=== PATIENT | female | born 1995 | race Caucasian/White ===

== ENCOUNTER 2022-06-16 13:47 | Emergency (ER) | payer BC, OTHER | END 2022-06-16 15:26 | disposition home or self-care (01) | LOC: CSHERS 13:47 | DX: S61.211A Laceration without foreign body of left index finger without damage to nail, initial encounter (principal); D64.9 Anemia, unspecified; W26.8XXA Contact with other sharp object(s), not elsewhere classified, initial encounter | CPT/HCPCS: 99282 ==